=== PATIENT | female | born 1955 | race African-American/Black ===

== ENCOUNTER 2017-06-19 14:47 | Emergency (ER) | payer SELFPAY ==
[~2017-06-19] VITALS: Ht 162.6 cm; Wt 59.5 kg
[2017-06-19] MEDS ORDERED: POVIDONE-IODINE 10% 15 ML SOLUTION UD TP ONE (16:30)
[2017-06-19 16:41] VITALS: BP 110/76
[2017-06-19] MEDS ORDERED: LIDOCAINE HCL 1% 10 ML VIAL INJ ONE (17:00)
== END 2017-06-19 17:22 | disposition home or self-care (01) ==
LOC: EMS 14:48
DX: R22.41 Localized swelling, mass and lump, right lower limb (principal); L02.415 Cutaneous abscess of right lower limb; F12.90 Cannabis use, unspecified, uncomplicated; F17.210 Nicotine dependence, cigarettes, uncomplicated
CPT/HCPCS: 10060; 99283; J3490